=== PATIENT | male | born 1960 | race Caucasian/White ===

== ENCOUNTER 2024-09-21 19:29 | Emergency (ER) | payer BC ==
[2024-09-21] MEDS: Bacitracin Oint 1 GM U/D Packet TOP ONE (20:40)
== END 2024-09-21 21:25 | disposition home or self-care (01) ==
LOC: JP.ED 19:29
DX: S61.011A Laceration without foreign body of right thumb without damage to nail, initial encounter (principal); Z79.899 Other long term (current) drug therapy; W23.1XXA Caught, crushed, jammed, or pinched between stationary objects, initial encounter
CPT/HCPCS: 12002; 99283; J2003